=== PATIENT | female | born 1965 | race Hispanic/Latino ===

== ENCOUNTER 2021-07-01 13:11 | Inpatient (IN) | payer BC ==
[~2021-07-01] VITALS: Ht 177.8 cm; Wt 72.1 kg
[2021-07-01] MEDS ORDERED: MECLIZINE HCL 25 MG TABLET PO ONE (13:30)
[2021-07-01] MEDS: ACETAMINOPHEN 500 MG TABLET PO SCH (14:00)
[2021-07-01 14:05] LABS: BASOPHILS % (AUTO) 0.4 % (0.0-5.0); EOSINOPHILS % (AUTO) 0.6 % (0.0-8.0); HEMATOCRIT 40.5 % (36-48); LYMPHOCYTES % (AUTO) 31.2 % (21.0-51.0); MEAN CORPUSCULAR HEMOGLOBIN 30.3 pg (27.0-33.0); MEAN CORPUSCULAR HGB CONC 33.1 g/dL (32.0-36.0); MEAN CORPUSCULAR VOLUME 91.6 fL (79-99); MONOCYTES % (AUTO) 4.6 % (3.0-13.0); NEUTROPHILS % (AUTO) 62.8 % (40.0-77.0); PLATELET COUNT (AUTO) 334 K/uL (130-400); RED BLOOD CELL COUNT(AUTO) 4.42 MIL/uL (4.00-5.50); RED CELL DISTRIBUTION WIDTH 12.7 % (11.0-15.5); WHITE BLOOD COUNT (AUTO) 7.2 K/uL (4.8-10.8)
[2021-07-01 14:07] LABS: APPEARANCE,URINE Clear (CLEAR); BILIRUBIN,URINE Negative (NEGATIVE); COLOR,URINE Yellow (YELLOW); GLUCOSE, URINE (UA) Negative (NEGATIVE); KETONES,URINE Negative (NEGATIVE); LEUKOCYTE ESTERASE ,URINE Negative (NEGATIVE); NITRATE,URINE Negative (NEGATIVE); OCCULT BLOOD,URINE Negative (NEGATIVE); PROTEIN,URINE Negative (NEGATIVE); UROBILINOGEN,URINE 0.2 mg/dL (0.2-1.0)
[2021-07-01 14:14] LABS: AMPHET/METH SCREEN,URINE NEGATIVE (NEGATIVE); BARBITURATE SCREEN, URINE NEGATIVE (NEGATIVE); BENZODIAZEPINES SCREEN,URINE NEGATIVE (NEGATIVE); CANNABINOID SCREEN,URINE NEGATIVE (NEGATIVE); COCAINE SCREEN,URINE NEGATIVE (NEGATIVE); OPIATE SCREEN,URINE NEGATIVE (NEGATIVE); PHENCYCLIDINE SCREEN,URINE NEGATIVE (NEGATIVE)
[2021-07-01 14:20] LABS: CREATININE 0.8 mg/dL (0.5-1.5); POTASSIUM 3.9 mmol/L (3.5-5.1)
[2021-07-01 14:24] LABS: ALBUMIN 3.6 g/dL (3.5-5.0); BILIRUBIN,TOTAL 0.2 mg/dL (0.2-1.0); CRP QUANTITATIVE 17.5 mg/L (0.00-9.0); TOTAL PROTEIN, SERUM 7.6 g/dL (6.0-8.3)
[2021-07-01 14:29] LABS: B-TYPE NATRIURETIC PEPTIDE 12 pg/mL (0-100)
[2021-07-01] MEDS ORDERED: DEXAMETHASONE 10MG/ML 1ML VIAL 0 MG in 0.9%NACL 50ML 50 ML IV SCH (16:00)
[2021-07-01] MEDS ORDERED: ACETAMINOPHEN 325 MG TAB PO PRN ×2 (16:30)
[2021-07-01] MEDS ORDERED: LACTULOSE 20 GM/30 ML UDCUP PO PRN (16:30)
[2021-07-01] MEDS ORDERED: NITROGLYCERIN 0.4 MG SL TAB SL PRN (16:30)
[2021-07-01] MEDS ORDERED: ONDANSETRON 4MG INJ IV PRN (16:30)
[2021-07-01] MEDS ORDERED: PHARMACY COMMUNICATION MISC SCH (16:30)
[2021-07-01] MEDS ORDERED: ZOLPIDEM TARTRATE 5 MG TAB PO PRN (16:30)
[2021-07-01] MEDS ORDERED: DEXAMETHASONE SOD PHOSPHATE 4 MG/ML 1ML VIAL IVP SCH ×2 (17:00→23:00)
[2021-07-01] MEDS ORDERED: ACETAMINOPHEN 500 MG TABLET PO PRN (17:00)
[2021-07-01] MEDS ORDERED: ONDANSETRON 4MG INJ IVP PRN (17:00)
[2021-07-01] MEDS ORDERED: DEXAMETHASONE SOD PHOSPHATE 10MG/ML 1ML VIAL ONE (17:13)
[2021-07-01] MEDS: FAMOTIDINE 20MG VIAL IV SCH (22:00)
[2021-07-02] VITALS (7 sets, daily range): BP systolic 84–110; BP diastolic 45–72
[2021-07-02] MEDS ORDERED: PHENYTOIN SODIUM 250MG (50 MG/ML) VIAL ONE ×2 (01:05→01:31)
[2021-07-02] MEDS ORDERED: DEXAMETHASONE SOD PHOSPHATE 4 MG/ML 1ML VIAL IVP SCH (02:30)
[2021-07-02] MEDS: DEXAMETHASONE SOD PHOSPHATE 4 MG/ML 1ML VIAL IVP SCH ×4 (05:44→23:53)
[2021-07-02] MEDS: PHENYTOIN SODIUM 100 MG ERCAP PO SCH (08:46)
[2021-07-02] MEDS: FAMOTIDINE 20MG VIAL IV SCH ×2 (08:46→20:01)
[2021-07-02] MEDS ORDERED: GADOTERATE MEGLUMINE 10 MMOL/20 ML VIAL IV ONE (09:21)
[2021-07-02] MEDS: ACETAMINOPHEN 500 MG TABLET PO SCH (11:25)
[2021-07-02] MEDS: LACTATED RINGERS 1000ML 1,000 ML IV SCH (11:41)
[2021-07-03] MEDS: LACTATED RINGERS 1000ML 1,000 ML IV SCH ×2 (01:51→05:30)
[2021-07-03] MEDS ORDERED: DEXAMETHASONE 4 MG TAB PO SCH (02:00)
[2021-07-03 03:27] VITALS: BP 109/56
[2021-07-03] MEDS: DEXAMETHASONE 4 MG TAB PO SCH ×4 (05:30→22:56)
[2021-07-03 06:42] LABS: BASOPHILS % (AUTO) 0.1 % (0.0-5.0); LYMPHOCYTES % (AUTO) 8.4 % (21.0-51.0); MEAN CORPUSCULAR HEMOGLOBIN 29.9 pg (27.0-33.0); MEAN CORPUSCULAR HGB CONC 32.6 g/dL (32.0-36.0); MEAN CORPUSCULAR VOLUME 91.6 fL (79-99); MONOCYTES % (AUTO) 2.3 % (3.0-13.0); NEUTROPHILS % (AUTO) 88.5 % (40.0-77.0); PLATELET COUNT (AUTO) 363 K/uL (130-400); RED BLOOD CELL COUNT(AUTO) 4.15 MIL/uL (4.00-5.50); RED CELL DISTRIBUTION WIDTH 12.9 % (11.0-15.5); WHITE BLOOD COUNT (AUTO) 19.9 K/uL (4.8-10.8)
[2021-07-03 06:55] LABS: CREATININE 0.8 mg/dL (0.5-1.5); POTASSIUM 3.7 mmol/L (3.5-5.1)
[2021-07-03 08:00] VITALS: BP 112/73
[2021-07-03] MEDS: FAMOTIDINE 20MG VIAL IV SCH ×2 (08:30→20:08)
[2021-07-03] MEDS: PHENYTOIN SODIUM 100 MG ERCAP PO SCH (08:30)
[2021-07-03 11:40] VITALS: BP 104/70
[2021-07-03 15:55] VITALS: BP 95/65
[2021-07-03 19:59] VITALS: BP 103/57
[2021-07-03 23:15] VITALS: BP 94/56
[2021-07-04 03:47] VITALS: BP 97/68
[2021-07-04 04:06] LABS: BASOPHILS % (AUTO) 0.1 % (0.0-5.0); HEMATOCRIT 37.5 % (36-48); LYMPHOCYTES % (AUTO) 14.1 % (21.0-51.0); MEAN CORPUSCULAR HEMOGLOBIN 29.7 pg (27.0-33.0); MEAN CORPUSCULAR HGB CONC 32.3 g/dL (32.0-36.0); MEAN CORPUSCULAR VOLUME 91.9 fL (79-99); MONOCYTES % (AUTO) 2.9 % (3.0-13.0); NEUTROPHILS % (AUTO) 82.1 % (40.0-77.0); PLATELET COUNT (AUTO) 354 K/uL (130-400); RED BLOOD CELL COUNT(AUTO) 4.08 MIL/uL (4.00-5.50); RED CELL DISTRIBUTION WIDTH 12.9 % (11.0-15.5); WHITE BLOOD COUNT (AUTO) 12.3 K/uL (4.8-10.8)
[2021-07-04 04:20] LABS: PROTHROMBIN TIME 10.9 SEC (9.6-11.6)
[2021-07-04 04:23] LABS: ALBUMIN 3.2 g/dL (3.5-5.0); BILIRUBIN,TOTAL 0.2 mg/dL (0.2-1.0); CREATININE 0.8 mg/dL (0.5-1.5); POTASSIUM 4.2 mmol/L (3.5-5.1); TOTAL PROTEIN, SERUM 6.7 g/dL (6.0-8.3)
[2021-07-04] MEDS: DEXAMETHASONE 4 MG TAB PO SCH (05:23)
[2021-07-04 07:32] VITALS: BP 97/58
[2021-07-04] MEDS: PHENYTOIN SODIUM 100 MG ERCAP PO SCH (08:41)
[2021-07-04] MEDS: FAMOTIDINE 20MG VIAL IV SCH ×2 (08:41→20:44)
[2021-07-04] MEDS: POLYETHYLENE GLYCOL 3350 17 GM POWD.PACK PO SCH (10:09)
[2021-07-04 11:32] VITALS: BP 98/43
[2021-07-04] MEDS: DEXAMETHASONE SOD PHOSPHATE 4 MG/ML 1ML VIAL IVP SCH ×2 (12:37→17:22)
[2021-07-04 15:34] VITALS: BP 105/56
[2021-07-04 20:08] VITALS: BP 109/65
[2021-07-05 00:20] VITALS: BP 110/67
[2021-07-05] MEDS: DEXAMETHASONE SOD PHOSPHATE 4 MG/ML 1ML VIAL IVP SCH ×4 (00:44→17:17)
[2021-07-05 04:20] VITALS: BP 101/60
[2021-07-05 04:20] LABS: BASOPHILS % (AUTO) 0.2 % (0.0-5.0); HEMATOCRIT 40.6 % (36-48); LYMPHOCYTES % (AUTO) 18.7 % (21.0-51.0); MEAN CORPUSCULAR HEMOGLOBIN 29.6 pg (27.0-33.0); MEAN CORPUSCULAR HGB CONC 32.3 g/dL (32.0-36.0); MEAN CORPUSCULAR VOLUME 91.9 fL (79-99); MONOCYTES % (AUTO) 3.7 % (3.0-13.0); NEUTROPHILS % (AUTO) 76.5 % (40.0-77.0); PLATELET COUNT (AUTO) 342 K/uL (130-400); RED BLOOD CELL COUNT(AUTO) 4.42 MIL/uL (4.00-5.50); RED CELL DISTRIBUTION WIDTH 12.9 % (11.0-15.5); WHITE BLOOD COUNT (AUTO) 9.8 K/uL (4.8-10.8)
[2021-07-05 04:38] LABS: ALBUMIN 3.4 g/dL (3.5-5.0); BILIRUBIN,TOTAL 0.2 mg/dL (0.2-1.0); CREATININE 0.9 mg/dL (0.5-1.5); POTASSIUM 3.9 mmol/L (3.5-5.1); TOTAL PROTEIN, SERUM 7.2 g/dL (6.0-8.3)
[2021-07-05 08:00] VITALS: BP 110/71
[2021-07-05] MEDS: ACETAMINOPHEN 500 MG TABLET PO SCH (09:13)
[2021-07-05] MEDS: PHENYTOIN SODIUM 100 MG ERCAP PO SCH (09:17)
[2021-07-05] MEDS: POLYETHYLENE GLYCOL 3350 17 GM POWD.PACK PO SCH (09:17)
[2021-07-05] MEDS: FAMOTIDINE 20MG VIAL IV SCH ×2 (09:17→12:16)
[2021-07-05 12:00] VITALS: BP 116/68
[2021-07-05 16:00] VITALS: BP 109/74
[2021-07-05 20:24] VITALS: BP 111/75
[2021-07-06 00:28] VITALS: BP 119/77
[2021-07-06] MEDS: DEXAMETHASONE SOD PHOSPHATE 4 MG/ML 1ML VIAL IVP SCH ×5 (00:49→23:17)
[2021-07-06 04:28] VITALS: BP 108/65
[2021-07-06 05:18] LABS: BASOPHILS % (AUTO) 0.2 % (0.0-5.0); LYMPHOCYTES % (AUTO) 17.8 % (21.0-51.0); MEAN CORPUSCULAR HEMOGLOBIN 29.6 pg (27.0-33.0); MEAN CORPUSCULAR VOLUME 89.7 fL (79-99); MONOCYTES % (AUTO) 3.4 % (3.0-13.0); NEUTROPHILS % (AUTO) 77.5 % (40.0-77.0); PLATELET COUNT (AUTO) 346 K/uL (130-400); RED BLOOD CELL COUNT(AUTO) 4.46 MIL/uL (4.00-5.50); RED CELL DISTRIBUTION WIDTH 12.7 % (11.0-15.5); WHITE BLOOD COUNT (AUTO) 9.9 K/uL (4.8-10.8)
[2021-07-06 05:31] LABS: ALBUMIN 3.4 g/dL (3.5-5.0); BILIRUBIN,TOTAL 0.2 mg/dL (0.2-1.0); CREATININE 0.8 mg/dL (0.5-1.5); POTASSIUM 4.1 mmol/L (3.5-5.1); TOTAL PROTEIN, SERUM 7.2 g/dL (6.0-8.3)
[2021-07-06 07:48] VITALS: BP 107/60
[2021-07-06] MEDS: PHENYTOIN SODIUM 100 MG ERCAP PO SCH (09:08)
[2021-07-06] MEDS: FAMOTIDINE 20MG VIAL IV SCH ×2 (09:08→20:36)
[2021-07-06] MEDS: POLYETHYLENE GLYCOL 3350 17 GM POWD.PACK PO SCH (09:08)
[2021-07-06 11:17] VITALS: BP 108/61
[2021-07-06] MEDS: ACETAMINOPHEN 500 MG TABLET PO SCH (12:12)
[2021-07-06 16:13] VITALS: BP 103/56
[2021-07-06 20:30] VITALS: BP 102/75
[2021-07-07 00:05] VITALS: BP 116/47
[2021-07-07] MEDS ORDERED: CEFAZOLIN SODIUM 1 GM VIAL IVP PRN (04:00)
[2021-07-07] MEDS: DEXAMETHASONE SOD PHOSPHATE 4 MG/ML 1ML VIAL IVP SCH ×2 (04:37→12:17)
[2021-07-07 08:08] VITALS: BP 119/66
[2021-07-07] MEDS: FAMOTIDINE 20MG VIAL IV SCH (09:47)
[2021-07-07] MEDS: PHENYTOIN SODIUM 100 MG ERCAP PO SCH (09:47)
[2021-07-07] MEDS: POLYETHYLENE GLYCOL 3350 17 GM POWD.PACK PO SCH (09:47)
[2021-07-07] MEDS: ACETAMINOPHEN 500 MG TABLET PO SCH (09:48)
[2021-07-07 11:03] VITALS: BP 118/68
== END 2021-07-07 12:30 | disposition short-term general hospital (02) | DRG 54 ==
LOC: EDH 13:11 → EDHIP 16:13 → 4AH 07-02 01:15
PROVIDERS: ADMIT Internal Medicine; ATTEND Internal Medicine
DX: C71.9 Malignant neoplasm of brain, unspecified (principal); G93.5 Compression of brain; G93.6 Cerebral edema; R29.6 Repeated falls; D72.829 Elevated white blood cell count, unspecified; Z20.822 Contact with and (suspected) exposure to COVID-19; K82.8 Other specified diseases of gallbladder
CPT/HCPCS: 36415; 70450; 70553; 71045; 80048; 80053; 80305; 81003; 82140; 83880; 84484; 85025; 85610; 85730; 86140; 87635; 93005; G0378; J1100; J1165; J2405; J3490; J7120; J8540

== ENCOUNTER → 2024-12-18 | Outpatient (CLI) | payer BC, MEDICARE ==
--- NOTE | 2024-12-18 15:06 | HMCIMG ---
Exam Type: ANKLE 2VWS LT Clinical Information: PAIN IN LEFT ANKLE AND JOINTS OF LEFT FOOT Comparison: None Findings: No fractures are seen. There is soft tissue swelling over the medial lateral malleolus consistent with ankle sprain. IMPRESSION: Ankle sprain.
--- NOTE | 2024-12-18 15:09 | HMCIMG ---
Exam Type: KNEE/PATELLA 1-2VWS LT Clinical Information: PAIN IN LEFT KNEE Comparison: None Findings: The bone examination is unremarkable. No fractures or dislocations are seen. No radiopaque foreign bodies are noted. Soft tissues are preserved. IMPRESSION: Normal examination.
--- NOTE | 2024-12-18 16:30 | HMCIMG ---
Exam Type: US VENOUS DOPPLER UNILATERAL Clinical Information: DVT Comparison: None Findings: The examination shows nonocclusive thrombosis of the right femoral vein. The rest of the venous structures evaluated shows no evidence of thrombosis. IMPRESSION: Thrombus as noted.
== END | disposition home or self-care (01) ==
LOC: RAH 14:28
PROVIDERS: ATTEND Clinical Nurse Specialist Family Health
DX: S93.402A Sprain of unspecified ligament of left ankle, initial encounter (principal); I82.411 Acute embolism and thrombosis of right femoral vein; I82.501 Chronic embolism and thrombosis of unspecified deep veins of right lower extremity; X58.XXXA Exposure to other specified factors, initial encounter; Y93.89 Activity, other specified; Y92.89 Other specified places as the place of occurrence of the external cause; Y99.8 Other external cause status
CPT/HCPCS: 73560; 73600; 93971